=== PATIENT | female | born 1985 | race African-American/Black ===

== ENCOUNTER 2017-06-01 23:42 | Emergency (ER) | payer OTHER ==
[~2017-06-01] VITALS: Ht 160 cm; Wt 70.8 kg
[2017-06-01] MEDS ORDERED: PREDNISONE20 MG ORAL (23:58)
[2017-06-01] MEDS ORDERED: BENADRYL25 MG ORAL (23:58)
--- NOTE | 2017-06-01 23:58 | Emergency Room Report ---
History of Present Illness General Chief Complaint: Chest Pain Source: Patient Present Illness HPI Is a 32-year-old female with no cinnamon past medical history. She presents with allergic reaction. Unknown etiology. She woke up with hives on her body. Also with chest tightness. No fever chills but no nausea no vomiting. Itching. Has not anything for this. Denies any other complaint. Allergies: Coded Allergies: No Known Allergies (Unverified , 06/01/17) Patient History Past Medical History: none, see triage record, old chart reviewed Past Surgical History: none Pertinent Family History: none Social History: Denies: drug use Last Menstrual Period: NOW Now: No Immunizations: other Reviewed Nursing Documentation: PMH: Agreed, PSxH: Agreed Nursing Documentation-PMH Past Medical History: No Stated History Review of Systems Eye: Denies: blurred vision, eye pain ENT: Denies: ear pain, nose congestion, throat swelling Respiratory: Denies: cough, shortness of breath Cardiovascular: Reports: chest pain, Denies: palpitations Gastrointestinal: Denies: abdominal pain, diarrhea, nausea, vomiting Musculoskeletal: Denies: back pain, joint pain Skin: Reports: rash Neurological: Denies: headache, numbness Endocrine: Denies: increased thirst, increased urine Hematologic/Lymphatic: Denies: easy bruising All Other Systems: negative except mentioned in HPI Physical Exam Vital Signs Date Time Temp Pulse Resp B/P Pulse Ox O2 Delivery O2 Flow Rate FiO2 06/01/17 23:44 97.9 93 18 127/91 98 Room Air vitals normal Sp02 EP Interpretation: reviewed, normal General Appearance: well appearing, no apparent distress, alert Head: normocephalic, atraumatic Eyes: bilateral eye EOMI, bilateral eye PERRL ENT: hearing grossly normal, normal pharynx Neck: full range of motion, supple, no meningismus Respiratory: chest non-tender, lungs clear, normal breath sounds Cardiovascular #1: regular rate, rhythm, no murmur Gastrointestinal: normal bowel sounds, non tender, no mass, no organomegaly, no bruit, non-distended Musculoskeletal: back normal, gait/station normal, normal range of motion Neurologic: alert, oriented x3 Psychiatric: mood/affect normal Skin: warm/dry, other - Scattered diffuse urticaria Medical Decision Making Diagnostic Impression: Primary Impression: Allergic reaction Qualified Codes: T78.40XA - Allergy, unspecified, initial encounter ER Course Patient with urticaria/allergic reaction. Unknown etiology. Her chest pain is noncardiac and most likely secondary to histamine release. No evidence of ACS, PE, dissection to name a few. No evidence of anaphylaxis. Last Vital Signs Date Time Temp Pulse Resp B/P Pulse Ox O2 Delivery O2 Flow Rate FiO2 06/01/17 23:44 97.9 93 18 127/91 98 Room Air Status: improved Disposition: HOME, SELF-CARE Condition: Stable Scripts Prednisone* (PREDNISONE*) 20 Mg Tablet 40 MG ORAL DAILY, #10 TAB Prov: KWASI RAMIREZ M.D. 06/01/17 Diphenhydramine Hcl* (BENADRYL*) 25 Mg Capsule 50 MG ORAL Q6H Y for Itching, #30 CAP Prov: KWASI RAMIREZ M.D. 06/01/17 Additional Instructions: Followup with your Dr. in 7 days. Return if symptom worsen. Return for respiratory complaint. KWASI RAMIREZ M.D. Jun 01, 2017 23:58
[2017-06-02] MEDS ORDERED: Solu-MEDROL 125mg Inj IVP ONE
[2017-06-02] MEDS ORDERED: DiphenhydrAMINE 50mg/ml Inj IVP ONE
[2017-06-02 00:43] VITALS: BP 122/78
[2017-06-02 00:44] VITALS: BP 122/78
== END 2017-06-02 00:45 | disposition home or self-care (01) ==
LOC: EMR 23:55
DX: T78.40XA Allergy, unspecified, initial encounter (principal); X58.XXXA Exposure to other specified factors, initial encounter; L50.9 Urticaria, unspecified; R07.9 Chest pain, unspecified
CPT/HCPCS: 96374; 96375; 99284; J1200; J2930

== ENCOUNTER 2018-10-01 08:18 | Emergency (ER) | payer OTHER ==
[~2018-10-01] VITALS: Ht 160 cm; Wt 78.0 kg
[~2018-10-01 08:18] MED LIST: BENADRYL25 MG ORAL; PREDNISONE20 MG ORAL
[2018-10-01] MEDS ORDERED: NKM (08:26)
--- NOTE | 2018-10-01 08:39 | Emergency Room Report ---
History of Present Illness General Chief Complaint: Complications Source: Patient Present Illness HPI Patient reports that she is approximately 5 weeks presents with vaginal spotting since yesterday Reports that she saw her OB physician And was told that bleeding can be normal in the first trimester Patient also has an appointment in the next 3 days for repeat evaluation Denies any abdominal pain patient is denies any vomiting or diarrhea denies any fevers or chills at the spotting had persisted she was concerning came to the ER Reports that she did not have an ultrasound yesterday Allergies: Coded Allergies: No Known Allergies (Unverified , 06/01/17) Patient History Past Medical History: see triage record Pertinent Family History: none Now: Yes : 3 Para: 1 Reviewed Nursing Documentation: PMH: Agreed; PSxH: Agreed Nursing Documentation-PMH Past Medical History: No Stated History Review of Systems All Other Systems: negative except mentioned in HPI Physical Exam Vital Signs Date Time Temp Pulse Resp B/P (MAP) Pulse Ox O2 Delivery O2 Flow Rate FiO2 10/01/18 08:22 97.9 74 18 116/79 99 Room Air Sp02 EP Interpretation: reviewed, normal General Appearance: well appearing, no apparent distress Head: normocephalic, atraumatic Eyes: bilateral eye PERRL, bilateral eye EOMI ENT: hearing grossly normal, normal pharynx, TMs + canals normal, uvula midline Neck: full range of motion, supple, no meningismus, no bony tend Respiratory: lungs clear, normal breath sounds, no rhonchi, no respiratory distress, no retraction, no accessory muscle use Cardiovascular #1: normal peripheral pulses, regular rate, rhythm, no edema, no gallop, no JVD, no murmur Gastrointestinal: normal bowel sounds, non tender, soft, no mass, no organomegaly, non-distended, no guarding, no hernia, no pulsatile mass, no rebound Musculoskeletal: normal inspection Neurologic: oriented x3, responsive, lead person III-XII nml as tested, motor strength/ tone normal, sensory intact Psychiatric: mood/affect normal Skin: normal color, no rash, warm/dry, palpation normal Lymphatic: normal inspection, no adenopathy Medical Decision Making Diagnostic Impression: Primary Impression: Threatened ER Course With the patient's history and examination, multiple differentials considered, including but not limited to , ectopic , ovarian torsion, gastritis, cholecystitis, pancreatitis, appendicitis Patient's ultrasound reveals questionable early intrauterine Beta count is over 2700 Patient's blood type is O+ At this time the case was discussed with the patient with the diagnosis of possible threatened miscarriage and the need for close outpatient follow-up After disposition I was notified by nursing that the patient wanted to talk to me again Presenting back to the room patient is tearful and appears to have changed with her demeanor Asking further she reports that she was not told by her die inspector about the possible miscarriage He was again discussed with her that bleeding and early this has to be considered Patient again verbalizes understanding and will continue with outpatient follow- up Labs Test 10/01/18 08:40 Urine Color Yellow Urine Appearance Clear Urine pH 6 (4.5-8.0) Urine Specific [place] 1.015 (1.005-1.035) Urine Protein 2+ (NEGATIVE) Urine Glucose (UA) Negative (NEGATIVE) Urine Ketones Negative (NEGATIVE) Urine Blood 5+ (NEGATIVE) Urine Nitrite Negative (NEGATIVE) Urine Bilirubin Negative (NEGATIVE) Urine Urobilinogen Normal MG/DL (0.0-1.0) Urine Leukocyte Esterase 1+ (NEGATIVE) Urine RBC 60-80 /HPF (0 - 2) Urine WBC 0-2 /HPF (0 - 2) Urine Squamous Epithelial Cells Occasional /LPF Urine Bacteria Few /HPF (NONE) Human Chorionic Gonadotropin, Quant 2720 mIU/mL (1-6) CT/MRI/US Diagnostic Results CT/MRI/US Diagnostic Results : Impression pelvic ultrasoundIMPRESSION: 1. Possible 4.5 mm intrauterine gestational sac identified only on the transvaginal scan. No pole or yolk sac identified, likely related to early status. Recommend follow-up sonography. 2. 9 x 9 mm structure in the anterior wall of the lower uterine segment, likely small fibroid. 3. Multiple cystic lesions in the cervix, likely nabothian cysts, largest measuring 14 x 9 mm. Last Vital Signs Date Time Temp Pulse Resp B/P (MAP) Pulse Ox O2 Delivery O2 Flow Rate FiO2 10/01/18 08:22 97.9 74 18 116/79 99 Room Air Status: improved Disposition: HOME, SELF-CARE Condition: Improved Additional Instructions: Patient is provided with the discharge instructions notified to follow up with primary doctor in the next 2-3 days otherwise return to the er with any worsening symptoms. Please note that this report is being documented using [employer] technology. This can lead to erroneous entry secondary to incorrect interpretation by the dictating instrument. Isamar Horne DO Oct 01, 2018 08:39
[2018-10-01 08:49] LABS: APPEARANCE,URINE CLEAR; BILIRUBIN, URINE NEGATIVE (NEGATIVE); COLOR,URINE YELLOW; GLUCOSE, URINE (UA) NEGATIVE (NEGATIVE); KETONES,URINE NEGATIVE (NEGATIVE); LEUKOCYTE ESTERASE ,URINE 1+ (NEGATIVE); NITRITE,URINE NEGATIVE (NEGATIVE); PH,URINE 6 (4.5-8.0); PROTEIN,URINE 2+ (NEGATIVE); UROBILINOGEN,URINE NORMAL MG/DL (0.0-1.0)
--- NOTE | 2018-10-01 10:24 | Diagnostic Imaging Report ---
EXAM: US Pelvis Complete, Transabdominal CLINICAL HISTORY: BLD TECHNIQUE: Real-time transabdominal pelvic ultrasound (complete) with image documentation. COMPARISON: No relevant prior studies available. FINDINGS: Uterus/cervix: 9 x 9 mm structure in the anterior wall of the lower uterine segment, likely small fibroid. Multiple cystic lesions in the cervix, likely nabothian cysts, largest measuring 14 x 9 mm. Uterus measures 8.1 x 6.6 x 4.6 cm by transabdominal measurement and 9.3 x 6.6 x 5.1 cm by transvaginal measurement. Endometrial stripe thickness of 18 mm by transabdominal measurement and 13 mm by transvaginal measurement. Right ovary: Right ovary measures 4.1 x 4.0 x 2.0 cm by transabdominal measurement and 4.0 x 1.2 x 0.9 cm by transvaginal measurement. Normal Doppler flow. Left ovary: Left ovary measures 3.9 x 3.1 x 1.6 cm by transabdominal measurement and 4.4 x 3.7 x 1.5 cm by transvaginal measurement. Normal Doppler flow. Free fluid: No free fluid. Bladder: Unremarkable as visualized. Wall is normal thickness for degree of distention. Other findings: Possible 4.5 mm intrauterine gestational sac identified only on the transvaginal scan. IMPRESSION: 1. Possible 4.5 mm intrauterine gestational sac identified only on the transvaginal scan. No pole or yolk sac identified, likely related to early status. Recommend follow-up sonography. 2. 9 x 9 mm structure in the anterior wall of the lower uterine segment, likely small fibroid. 3. Multiple cystic lesions in the cervix, likely nabothian cysts, largest measuring 14 x 9 mm.
[2018-10-01 10:43] VITALS: BP 114/85
== END 2018-10-01 10:43 | disposition home or self-care (01) ==
LOC: EMR 09:05
DX: O20.0 Threatened abortion (principal); O26.851 Spotting complicating pregnancy, first trimester; Z3A.01 Less than 8 weeks gestation of pregnancy
CPT/HCPCS: 36415; 76801; 76830; 81003; 84702; 86900; 86901; 99284

== ENCOUNTER 2019-07-02 12:25 | Emergency (ER) | payer OTHER ==
[~2019-07-02] VITALS: Ht 160 cm; Wt 76.7 kg
[~2019-07-02 12:25] MED LIST changes: +NKM
[2019-07-02] MEDS ORDERED: PRENATAL 19 TA1 EAC1 PO (12:41)
--- NOTE | 2019-07-02 12:52 | Emergency Room Report ---
History of Present Illness General Chief Complaint: Vomiting Source: Patient Present Illness HPI 34-year-old female presents to the emergency department complaining of 6 out of 10 severity intermittent abdominal pain associated with nausea, vomiting, diarrhea since yesterday. She reports that she is 2 months and states that this does not feel like her normal morning sickness. Patient denies fevers or chills she denies recent travel she reports acute onset after eating a chicken sandwich and she also reports that her son whom ate a chicken sandwich also has similar symptoms presenting at approximately the same time. Denies blood in the vomit or stool denies black tarry stool denies profuse watery diarrhea and denies recent antibiotic use. Denies vaginal d/c, bleeding or pelvic pain. Pt. reports generalized intermittent cramping. Allergies: Coded Allergies: No Known Allergies (Unverified , 06/01/17) Patient History Past Medical History: see triage record Pertinent Family History: none Last Menstrual Period: 04/23/2019 Now: Yes : 4 Para: 1 Reviewed Nursing Documentation: PMH: Agreed; PSxH: Agreed Nursing Documentation-PMH Past Medical History: No Stated History Review of Systems All Other Systems: negative except mentioned in HPI Physical Exam Vital Signs Date Time Temp Pulse Resp B/P (MAP) Pulse Ox O2 Delivery O2 Flow Rate FiO2 07/02/19 12:38 98.8 96 18 111/74 (86) 95 Room Air Sp02 EP Interpretation: reviewed, normal General Appearance: alert, GCS 15, non-toxic, mild distress Head: normocephalic, atraumatic Eyes: bilateral eye normal inspection, bilateral eye PERRL ENT: hearing grossly normal, normal voice Neck: full range of motion Respiratory: chest non-tender, lungs clear, normal breath sounds, speaking full sentences Cardiovascular #1: regular rate, rhythm Gastrointestinal: normal bowel sounds - hyperactive in all 4 quadrants, soft, no guarding, tenderness - generalized TTP- mild, no localized RLQ TTP, no rebound, No murphys. Rectal: deferred Genitourinary: normal inspection, no CVA tenderness Musculoskeletal: gait/station normal, normal range of motion, non-tender Neurologic: alert, oriented x3, responsive, motor strength/tone normal, sensory intact, normal gait, speech normal, grossly normal Psychiatric: judgement/insight normal Skin: no rash Medical Decision Making PA Attestation Dr. Hendrix is my supervising Physician whom patient management has been discussed with. Diagnostic Impression: Primary Impression: Combined abdominal pain, vomiting, and diarrhea Additional Impressions: Diarrhea during Vomiting during ER Course 34-year-old female presents to the emergency department complaining of 6 out of 10 severity intermittent abdominal pain associated with nausea, vomiting, diarrhea since yesterday. She reports that she is 2 months and states that this does not feel like her normal morning sickness. Patient denies fevers or chills she denies recent travel she reports acute onset after eating a chicken sandwich and she also reports that her son whom ate a chicken sandwich also has similar symptoms presenting at approximately the same time. Denies blood in the vomit or stool denies black tarry stool denies profuse watery diarrhea and denies recent antibiotic use. Denies vaginal d/c, bleeding or pelvic pain. Pt. reports generalized intermittent cramping. Ddx considered but are not limited to GE, colitis, acute appy, SBO, Cyclical Vomiting secondary to THC, just to name a few. Vital signs: pt. is afebrile, H&PE are most consistent with GE , no evidence to suggest acute abdomen on physical exam. No evidence of severe Dehydration. ORDERS: -CBC: WNL -CMP: WNL - Hcg Quant: 12113 - Abdominal OB US: ED INTERVENTIONS: -1000 NS iv hydration, -Reglan 5mg IV - Benadryl 25mg IV -Bentyl PO After above interventions this patient successfully completed oral fluid challenge without nausea or vomiting. DISCHARGE: At this time pt. is stable for d/c to home. Will provide printed patient care instructions, and any necessary prescriptions. Care plan and follow up instructions have been discussed with the patient prior to discharge. Labs Test 07/02/19 13:10 White Blood Count 6.7 K/UL (4.8-10.8) Red Blood Count 4.14 M/UL (4.20-5.40) Hemoglobin 12.4 G/DL (12.0-16.0) Hematocrit 37.0 % (37.0-47.0) Mean Corpuscular Volume 89 FL (80-99) Mean Corpuscular Hemoglobin 30.0 PG (27.0-31.0) Mean Corpuscular Hemoglobin Concent 33.5 G/DL (32.0-36.0) Red Cell Distribution Width 10.3 % (11.6-14.8) Platelet Count 291 K/UL (150-450) Mean Platelet Volume 6.4 FL (6.5-10.1) Neutrophils (%) (Auto) 58.2 % (45.0-75.0) Lymphocytes (%) (Auto) 34.5 % (20.0-45.0) Monocytes (%) (Auto) 4.8 % (1.0-10.0) Eosinophils (%) (Auto) 1.1 % (0.0-3.0) Basophils (%) (Auto) 1.5 % (0.0-2.0) Sodium Level 138 MMOL/L (136-145) Potassium Level 3.8 MMOL/L (3.5-5.1) Chloride Level 104 MMOL/L (98-107) Carbon Dioxide Level 24 MMOL/L (21-32) Anion Gap 10 mmol/L (5-15) Blood Urea Nitrogen 7 mg/dL (7-18) Creatinine 0.7 MG/DL (0.55-1.30) Estimat Glomerular Filtration Rate > 60 mL/min (>60) Glucose Level 135 MG/DL (74-106) Calcium Level 9.9 MG/DL (8.5-10.1) Total Bilirubin 0.3 MG/DL (0.2-1.0) Aspartate Amino Transf (AST/SGOT) 12 U/L (15-37) Alanine Aminotransferase (ALT/SGPT) 15 U/L (12-78) Alkaline Phosphatase 48 U/L (46-116) Total Protein 7.4 G/DL (6.4-8.2) Albumin 3.7 G/DL (3.4-5.0) Globulin 3.7 g/dL Albumin/Globulin Ratio 1.0 (1.0-2.7) Human Chorionic Gonadotropin, Quant 75805 mIU/mL (1-6) CT/MRI/US Diagnostic Results CT/MRI/US Diagnostic Results : Imaging Test Ordered: Vaginal OB US Impression " IUP measuring 9 weeks 3 days with heart rate 170 beats/minute." Per official radiology report- Please see report for specific details. Last Vital Signs Date Time Temp Pulse Resp B/P (MAP) Pulse Ox O2 Delivery O2 Flow Rate FiO2 07/02/19 12:38 98.8 96 18 111/74 (86) 95 Room Air Status: improved Disposition: HOME, SELF-CARE Condition: Stable Scripts Diphenhydramine Hcl (BENADRYL ALLERGY) 25 Mg Tablet 25 MG PO Q6HR for anxiousness from medications, #4 TAB Prov: Shilpa Simons 07/02/19 Dicyclomine Hcl* (DICYCLOMINE HCL*) 10 Mg Capsule 10 MG ORAL TID for Diarrhea, #9 CAP Prov: Shilpa Simons 07/02/19 Metoclopramide Hcl* (REGLAN*) 5 Mg Tablet 5 MG ORAL EVERY 6 HOURS for Nausea/Vomiting, #12 TAB Prov: Shilpa Simons 07/02/19 Patient Instructions: Food Poisoning Additional Instructions: Take medications as directed. Follow up with a OBGYN within 3 days, even if your symptoms have resolved. Return sooner to ED if new symptoms occur, or current symptoms become worse. - Please note that this Emergency Department Report was dictated using [employer] public [employer] technology software, occasionally this can lead to erroneous entry secondary to interpretation by the dictation equipment. Shilpa Simons Jul 02, 2019 12:52
[2019-07-02 12:53] VITALS: BP 111/74
--- NOTE | 2019-07-02 12:53 | NUR ---
ED Nurse Note: Patient walked in to ER from home due to abdominal pain 01/18, N/V since yesterday. pt aao x4 and ambulatory. skin clean and intact. calm and cooperative. per pt, she had a chicken burger yesterday and symptoms started. vss as documented. no vomiting at this moment.
[2019-07-02] MEDS ORDERED: Metoclopramide 10mg/2ml Inj IVP ONE (13:15)
[2019-07-02] MEDS ORDERED: DiphenhydrAMINE 50mg/ml Inj IVP ONE (13:15)
[2019-07-02 13:30] LABS: BASOPHILS % (AUTO) 1.5 % (0.0-2.0); EOSINOPHILS % (AUTO) 1.1 % (0.0-3.0); HEMOGLOBIN 12.4 G/DL (12.0-16.0); LYMPHOCYTES % (AUTO) 34.5 % (20.0-45.0); MEAN CORPUSCULAR VOLUME 89 FL (80-99); MONOCYTES % (AUTO) 4.8 % (1.0-10.0); NEUTROPHILS % (AUTO) 58.2 % (45.0-75.0); PLATELET COUNT 291 K/UL (150-450); RED BLOOD COUNT 4.14 M/UL (4.20-5.40); RED CELL DISTRIBUTION WIDTH 10.3 % (11.6-14.8); WHITE BLOOD COUNT 6.7 K/UL (4.8-10.8)
[2019-07-02 13:36] LABS: ANION GAP 10 mmol/L (5-15); BLOOD UREA NITROGEN 7 mg/dL (7-18); CALCIUM 9.9 MG/DL (8.5-10.1); CARBON DIOXIDE 24 MMOL/L (21-32); CHLORIDE 104 MMOL/L (98-107); CREATININE 0.7 MG/DL (0.55-1.30); POTASSIUM 3.8 MMOL/L (3.5-5.1); SODIUM 138 MMOL/L (136-145)
[2019-07-02 13:42] LABS: ALANINE AMINOTRANSFERASE 15 U/L (12-78); ALBUMIN 3.7 G/DL (3.4-5.0); ALKALINE PHOSPHATASE 48 U/L (46-116); ASPARTATE AMINO TRANSFERASE 12 U/L (15-37); BILIRUBIN,TOTAL 0.3 MG/DL (0.2-1.0)
[2019-07-02] MEDS ORDERED: Dicyclomine HCl 10mg/5ml oral soln ORAL ONE (14:00)
--- NOTE | 2019-07-02 14:30 | NUR ---
ED Nurse Note: Patient sleeping in room c/o no distress at this time. Informed patient that ceramics technician will be coming at around 330.
[2019-07-02 15:12] VITALS: BP 115/80
--- NOTE | 2019-07-02 15:12 | NUR ---
ED Nurse Note: Patient going down for ultrasound accompanied by ultrasound technologist sonographer
--- NOTE | 2019-07-02 16:00 | NUR ---
ED Nurse Note: Patient back from ultrasound, patient was given a sandwich, complains of no distress at this time
[2019-07-02] MEDS ORDERED: REGLAN5 MG ORAL (16:16)
[2019-07-02] MEDS ORDERED: DICYCLOMINE HCL10 MG ORAL (16:16)
--- NOTE | 2019-07-02 16:19 | Diagnostic Imaging Report ---
Indication: Pelvic pain. Technique: Grayscale and duplex Doppler imaging of the pelvis performed utilizing a transabdominal scan and endovaginal scan. Comparison: None Findings: Emergency ultrasound demonstrating single living IUP 9 weeks 2 days gestational age demonstrated based on average crown-rump length measurement of 2.5 cm. heart tones demonstrated indicating viability. Yolk sac noted. Both ovaries are demonstrated and show dopplerable blood flow. The cervix is closed and the measures 3.5 cm in length best demonstrated on endovaginal examination. Cervical nabothian cysts noted. The right ovary is 3.5 x 1.5 cm. Left ovary 2.7 x 1.3 x 2.5 cm. IMPRESSION: Single living IUP 9 weeks 2 days gestational age.
[2019-07-02] MEDS ORDERED: BENADRYL ALLERG25 M1 PO (16:26)
[2019-07-02 16:29] VITALS: BP 122/76
--- NOTE | 2019-07-02 16:29 | NUR ---
ER DISCHARGE NOTE: Patient is cleared to be discharged per ERMD, pt is aox4, on room air, with stable vital signs. pt was given dc and prescription instructions, pt was able to verbalize understanding, pt id band and iv site removed without complications. pt is able to ambulate with steady gait. pt took all belongings.
== END 2019-07-02 16:30 | disposition home or self-care (01) ==
LOC: EMR 13:00
DX: O21.9 Vomiting of pregnancy, unspecified (principal); Z3A.09 9 weeks gestation of pregnancy
CPT/HCPCS: 36415; 76801; 80053; 84702; 85025; 96361; 96374; 96375; J1200; J2765; Z7502; 99284

== ENCOUNTER 2019-07-22 11:22 | Emergency (ER) | payer OTHER ==
[~2019-07-22] VITALS: Ht 160 cm; Wt 71.7 kg
[~2019-07-22 11:22] MED LIST changes: +BENADRYL ALLERG25 M1 PO; +DICYCLOMINE HCL10 MG ORAL; +PRENATAL 19 TA1 EAC1 PO; +REGLAN5 MG ORAL
[2019-07-22] MEDS ORDERED: METOCLOPRA10 MG/10 M ORAL (11:37)
--- NOTE | 2019-07-22 11:40 | NUR ---
ED Nurse Note: Patient walked into ED from home c/o right lower quadrant pain, sharp. and nausea and vomiting for weeks. patient reports she is 3 months , following up with her OBGYN, but nausea medications prescribed are not really working for her.
[2019-07-22] MEDS ORDERED: DiphenhydrAMINE 50mg/ml Inj IVP ONE ×2 (12:00→17:30)
[2019-07-22] MEDS ORDERED: Dextrose 5%/Lactated Ringer's 1,000 ML IV SCH (12:00)
[2019-07-22 12:19] LABS: EOSINOPHILS % (AUTO) 1.1 % (0.0-3.0); HEMATOCRIT 36.4 % (37.0-47.0); HEMOGLOBIN 12.4 G/DL (12.0-16.0); LYMPHOCYTES % (AUTO) 39.4 % (20.0-45.0); MEAN CORPUSCULAR VOLUME 87 FL (80-99); MONOCYTES % (AUTO) 5.7 % (1.0-10.0); NEUTROPHILS % (AUTO) 52.8 % (45.0-75.0); PLATELET COUNT 327 K/UL (150-450); RED BLOOD COUNT 4.16 M/UL (4.20-5.40); RED CELL DISTRIBUTION WIDTH 10.5 % (11.6-14.8); WHITE BLOOD COUNT 6.8 K/UL (4.8-10.8)
[2019-07-22 12:26] LABS: APPEARANCE,URINE CLEAR; BILIRUBIN, URINE NEGATIVE (NEGATIVE); COLOR,URINE BROWN; GLUCOSE, URINE (UA) NEGATIVE (NEGATIVE); KETONES,URINE 2+ (NEGATIVE); LEUKOCYTE ESTERASE ,URINE 1+ (NEGATIVE); NITRITE,URINE NEGATIVE (NEGATIVE); PH,URINE 5 (4.5-8.0); PROTEIN,URINE 2+ (NEGATIVE); UROBILINOGEN,URINE 1 MG/DL (0.0-1.0)
[2019-07-22 12:35] LABS: ANION GAP 8 mmol/L (5-15); BLOOD UREA NITROGEN 6 mg/dL (7-18); CALCIUM 9.4 MG/DL (8.5-10.1); CARBON DIOXIDE 24 MMOL/L (21-32); CHLORIDE 102 MMOL/L (98-107); CREATININE 0.6 MG/DL (0.55-1.30); POTASSIUM 3.6 MMOL/L (3.5-5.1); SODIUM 134 MMOL/L (136-145)
[2019-07-22 12:39] LABS: ALANINE AMINOTRANSFERASE 17 U/L (12-78); ALBUMIN 3.5 G/DL (3.4-5.0); ALBUMIN/GLOBULIN RATIO 0.9 (1.0-2.7); ALKALINE PHOSPHATASE 45 U/L (46-116); ASPARTATE AMINO TRANSFERASE 11 U/L (15-37); BILIRUBIN,TOTAL 0.3 MG/DL (0.2-1.0)
--- NOTE | 2019-07-22 14:02 | Emergency Room Report ---
History of Present Illness General Chief Complaint: Complications Source: Patient (Gera Almeida MD) Present Illness HPI Patient is a 34-year-old female presented after increased nausea and vomiting. She reports having some increased right-sided abdominal discomfort. She was noted to be . Patient denies any fever. She reports having multiple episodes of nonbilious emesis. She had previous been prescribed Reglan. Brief episode of right sided pain, no pain currently. Denies pain with movement or ambulation. Denies vertigo. (Gera Almeida MD) Allergies: Coded Allergies: No Known Allergies (Unverified , 06/01/17) Patient History Past Medical History: see triage record Now: Yes - 3 months Reviewed Nursing Documentation: PMH: Agreed; PSxH: Agreed (Gera Almeida MD) Nursing Documentation-PMH Past Medical History: No Stated History (Gera Almeida MD) Review of Systems All Other Systems: negative except mentioned in HPI (Gera Almeida MD) Physical Exam Vital Signs Date Time Temp Pulse Resp B/P (MAP) Pulse Ox O2 Delivery O2 Flow Rate FiO2 07/22/19 11:32 98.2 87 19 117/81 (93) 99 Room Air General Appearance: well appearing, no apparent distress, alert, GCS 15 Eyes: bilateral eye PERRL ENT: hearing grossly normal Neck: full range of motion Respiratory: lungs clear Cardiovascular #1: normal inspection Gastrointestinal: normal inspection, normal bowel sounds, non tender, other - gravid uterus Musculoskeletal: normal inspection Neurologic: normal inspection, alert, oriented x3, responsive, ore miner blasting III-XII nml as tested Psychiatric: normal inspection, judgement/insight normal Skin: no rash (Gera Almeida MD) Vital Signs Date Time Temp Pulse Resp B/P (MAP) Pulse Ox O2 Delivery O2 Flow Rate FiO2 07/22/19 11:32 98.2 87 19 117/81 (93) 99 Room Air Sp02 EP Interpretation: reviewed, normal General Appearance: well appearing, no apparent distress, alert Head: normocephalic, atraumatic Eyes: bilateral eye PERRL, bilateral eye EOMI ENT: uvula midline, moist mucus membranes Neck: supple, thyroid normal, supple/symm/no masses Respiratory: lungs clear, no respiratory distress, no retraction, no accessory muscle use Cardiovascular #1: normal peripheral pulses, regular rate, rhythm, no edema, no gallop, no murmur Gastrointestinal: non tender, soft, no guarding, no rebound Musculoskeletal: normal inspection Neurologic: alert, oriented x3 Psychiatric: mood/affect normal Skin: no rash, warm/dry (Matt Arciniega MD) Medical Decision Making Diagnostic Impression: Primary Impression: Hyperemesis arising during ER Course Patient presented for increased abdominal discomfort as well as vomiting. Differential diagnosis include was not limited to ovarian cyst, torsion, round ligament pain among others. Because of complexity of patient's case laboratory tests and imaging studies were ordered. Laborartory testing was unremarkable. Patient had been given IV hydration. Improved ability to tolerated po fluids. Patient pending ultrasound endorsed to Dr. Arciniega likely will be discharge if normal. Labs Test 07/22/19 11:49 White Blood Count 6.8 K/UL (4.8-10.8) Red Blood Count 4.16 M/UL (4.20-5.40) Hemoglobin 12.4 G/DL (12.0-16.0) Hematocrit 36.4 % (37.0-47.0) Mean Corpuscular Volume 87 FL (80-99) Mean Corpuscular Hemoglobin 29.8 PG (27.0-31.0) Mean Corpuscular Hemoglobin Concent 34.1 G/DL (32.0-36.0) Red Cell Distribution Width 10.5 % (11.6-14.8) Platelet Count 327 K/UL (150-450) Mean Platelet Volume 6.0 FL (6.5-10.1) Neutrophils (%) (Auto) 52.8 % (45.0-75.0) Lymphocytes (%) (Auto) 39.4 % (20.0-45.0) Monocytes (%) (Auto) 5.7 % (1.0-10.0) Eosinophils (%) (Auto) 1.1 % (0.0-3.0) Basophils (%) (Auto) 1.0 % (0.0-2.0) Prothrombin Time 10.5 SEC (9.30-11.50) Prothromb Time International Ratio 1.0 (0.9-1.1) Activated Partial Thromboplast Time 25 SEC (23-33) Urine Color Brown Urine Appearance Clear Urine pH 5 (4.5-8.0) Urine Specific [place] 1.025 (1.005-1.035) Urine Protein 2+ (NEGATIVE) Urine Glucose (UA) Negative (NEGATIVE) Urine Ketones 2+ (NEGATIVE) Urine Blood Negative (NEGATIVE) Urine Nitrite Negative (NEGATIVE) Urine Bilirubin Negative (NEGATIVE) Urine Urobilinogen 1 MG/DL (0.0-1.0) Urine Leukocyte Esterase 1+ (NEGATIVE) Urine RBC 0 /HPF (0 - 2) Urine WBC 0-2 /HPF (0 - 2) Urine Squamous Epithelial Cells Occasional /LPF Urine Bacteria Occasional /HPF (NONE) Urine Mucus Moderate /LPF (NONE/OCC) Sodium Level 134 MMOL/L (136-145) Potassium Level 3.6 MMOL/L (3.5-5.1) Chloride Level 102 MMOL/L (98-107) Carbon Dioxide Level 24 MMOL/L (21-32) Anion Gap 8 mmol/L (5-15) Blood Urea Nitrogen 6 mg/dL (7-18) Creatinine 0.6 MG/DL (0.55-1.30) Estimat Glomerular Filtration Rate > 60 mL/min (>60) Glucose Level 82 MG/DL (74-106) Calcium Level 9.4 MG/DL (8.5-10.1) Total Bilirubin 0.3 MG/DL (0.2-1.0) Aspartate Amino Transf (AST/SGOT) 11 U/L (15-37) Alanine Aminotransferase (ALT/SGPT) 17 U/L (12-78) Alkaline Phosphatase 45 U/L (46-116) Troponin I 0.000 ng/mL (0.000-0.056) Total Protein 7.4 G/DL (6.4-8.2) Albumin 3.5 G/DL (3.4-5.0) Globulin 3.9 g/dL Albumin/Globulin Ratio 0.9 (1.0-2.7) Lipase 159 U/L (73-393) (Gera Almeida MD) ER Course Signout received from Dr. Almeida, reevaluation at 5:11 PM, patient is tolerating p.o. Patient's abdomen remains soft nontender, ultrasound is negative for any acute pathology disposition home with return precautions Laboratory Tests Test 07/22/19 11:49 White Blood Count 6.8 K/UL (4.8-10.8) Red Blood Count 4.16 M/UL (4.20-5.40) L Hemoglobin 12.4 G/DL (12.0-16.0) Hematocrit 36.4 % (37.0-47.0) L Mean Corpuscular Volume 87 FL (80-99) Mean Corpuscular Hemoglobin 29.8 PG (27.0-31.0) Mean Corpuscular Hemoglobin Concent 34.1 G/DL (32.0-36.0) Red Cell Distribution Width 10.5 % (11.6-14.8) L Platelet Count 327 K/UL (150-450) Mean Platelet Volume 6.0 FL (6.5-10.1) L Neutrophils (%) (Auto) 52.8 % (45.0-75.0) Lymphocytes (%) (Auto) 39.4 % (20.0-45.0) Monocytes (%) (Auto) 5.7 % (1.0-10.0) Eosinophils (%) (Auto) 1.1 % (0.0-3.0) Basophils (%) (Auto) 1.0 % (0.0-2.0) Prothrombin Time 10.5 SEC (9.30-11.50) Prothrombin Time INR 1.0 (0.9-1.1) PTT 25 SEC (23-33) Urine Color Brown Urine Appearance Clear Urine pH 5 (4.5-8.0) Urine Specific [place] 1.025 (1.005-1.035) Urine Protein 2+ (NEGATIVE) H Urine Glucose (UA) Negative (NEGATIVE) Urine Ketones 2+ (NEGATIVE) H Urine Blood Negative (NEGATIVE) Urine Nitrite Negative (NEGATIVE) Urine Bilirubin Negative (NEGATIVE) Urine Urobilinogen 1 MG/DL (0.0-1.0) H Urine Leukocyte Esterase 1+ (NEGATIVE) H Urine RBC 0 /HPF (0 - 2) Urine WBC 0-2 /HPF (0 - 2) Urine Squamous Epithelial Cells Occasional /LPF Urine Bacteria Occasional /HPF (NONE) Urine Mucus Moderate /LPF (NONE/OCC) H Sodium Level 134 MMOL/L (136-145) L Potassium Level 3.6 MMOL/L (3.5-5.1) Chloride Level 102 MMOL/L (98-107) Carbon Dioxide Level 24 MMOL/L (21-32) Anion Gap 8 mmol/L (5-15) Blood Urea Nitrogen 6 mg/dL (7-18) L Creatinine 0.6 MG/DL (0.55-1.30) Estimate Glomerular Filtration Rate > 60 mL/min (>60) Glucose Level 82 MG/DL (74-106) Calcium Level 9.4 MG/DL (8.5-10.1) Total Bilirubin 0.3 MG/DL (0.2-1.0) Aspartate Amino Transferase (AST) 11 U/L (15-37) L Alanine Aminotransferase (ALT) 17 U/L (12-78) Alkaline Phosphatase 45 U/L (46-116) L Troponin I 0.000 ng/mL (0.000-0.056) Total Protein 7.4 G/DL (6.4-8.2) Albumin 3.5 G/DL (3.4-5.0) Globulin 3.9 g/dL Albumin/Globulin Ratio 0.9 (1.0-2.7) L Lipase 159 U/L (73-393) (Matt Arciniega MD) CT/MRI/US Diagnostic Results CT/MRI/US Diagnostic Results : Impression Final Report EXAM: US Pelvis Complete, Transabdominal CLINICAL HISTORY: ABD PAIN TECHNIQUE: Real-time transabdominal pelvic ultrasound (complete) with image documentation. COMPARISON: No relevant prior studies available. FINDINGS: Uterus/cervix: The cervix is closed and measures about 4.2 cm in length. Normal endometrial stripe thickness. No myometrial mass. There is a single live intrauterine with an estimated gestational age of 12 weeks 5 days per crown-rump length measurement of 6.31 cm. heart rate is 166. Right ovary: Right ovary measures about 3.2 and 1.7 x 3.4 cm. Normal blood flow. Left ovary: Left ovary measures about 3.2 x 1.1 x 2.9 cm. Normal blood flow. Free fluid: No free fluid. IMPRESSION: single live intrauterine with an estimated gestational age of 12 weeks 5 days per crown-rump length measurement of 6.31 cm. Estimated due date is 01/30/20 Radiologist: Gergory Minaya M.D. Electronically Signed: 07/22/19 18:35 Phone: Study ready at 18:05 and initial results transmitted at 18:35 (Matt Arciniega MD) Last Vital Signs Date Time Temp Pulse Resp B/P (MAP) Pulse Ox O2 Delivery O2 Flow Rate FiO2 07/22/19 11:32 98.2 87 19 117/81 (93) 99 Room Air Status: improved (Gera Almeida MD) Disposition: HOME, SELF-CARE Condition: Stable Scripts Doxylamine/Pyridoxine Hcl (DICLECODIS DR 10-10 MG TABLET) 1 Each Tablet. 1 EACH PO BID, #30 TAB Prov: Matt Arciniega MD 07/22/19 Referrals: NON PHYSICIAN (PCP) [facility]. [facility] Patient Instructions: Eating Plan for Hyperemesis Gravidarum, Hyperemesis Gravidarum Additional Instructions: The patient was provided with discharge instructions, notified to follow-up with a primary care doctor and or specialist in the next 24-48 hours, and to return to the ED if they have worsening of their symptoms. Please note that this report is being documented using DRAGON technology. This can lead to erroneous entry secondary to incorrect interpretation by the dictating instrument. Gera Almeida MD Jul 22, 2019 14:02 Matt Arciniega MD Jul 22, 2019 17:12
--- NOTE | 2019-07-22 14:18 | NUR ---
ED Nurse Note: [facility] called, will be seeing patient soon
--- NOTE | 2019-07-22 14:40 | NUR ---
ED Nurse Note: patient taken to [facility] with her son
[2019-07-22] MEDS ORDERED: Metoclopramide 10mg/2ml Inj IVP ONE (17:00)
[2019-07-22] MEDS ORDERED: DICLEGIS DR 101 EACH PO (17:11)
[2019-07-22] MEDS ORDERED: DiphenhydrAMINE 50mg/ml Inj ONE (17:22)
[2019-07-22 17:28] VITALS: BP 121/82
[2019-07-22 17:29] VITALS: BP 121/82
--- NOTE | 2019-07-22 17:29 | NUR ---
ER DISCHARGE NOTE: Patient is cleared to be discharged per ERMD DR MARTIN, pt is aox4, on room air, with stable vital signs. pt was given dc and prescription instructions, pt was able to verbalize understanding, pt id band and iv site removed without complications. pt is able to ambulate with steady gait. pt took all belongings.
--- NOTE | 2019-07-22 18:17 | Diagnostic Imaging Report ---
EXAM: US Abdomen Complete CLINICAL HISTORY: ABD PAIN TECHNIQUE: Real-time ultrasound of the abdomen (complete) with image documentation. COMPARISON: No relevant prior studies available. FINDINGS: Liver: Liver measures about 15.1 cm longitudinally. No intrahepatic bile duct dilation. Gallbladder: Gallbladder measures about 1 mm in maximal thickness. No gallstones. Common bile duct: Common bile duct measures 3 mm in maximum diameter No stones. No dilation. Pancreas: Unremarkable as visualized. Kidneys: left kidney measures 11.5 cm longitudinally. Right kidney measures about 11.6 cm longitudinally. No stones. No hydronephrosis. Spleen: Spleen measures about 9 cm longitudinally. Aorta: Unremarkable. No aneurysm. Inferior vena cava: Unremarkable. IMPRESSION: No acute findings.
--- NOTE | 2019-07-22 18:36 | Diagnostic Imaging Report ---
EXAM: US Pelvis Complete, Transabdominal CLINICAL HISTORY: ABD PAIN TECHNIQUE: Real-time transabdominal pelvic ultrasound (complete) with image documentation. COMPARISON: No relevant prior studies available. FINDINGS: Uterus cervix: The cervix is closed and measures about 4.2 cm in length. Normal endometrial stripe thickness. No myometrial mass. There is a single live intrauterine with an estimated gestational age of 12 weeks 5 days per crown-rump length measurement of 6.31 cm. heart rate is 166. Right ovary: Right ovary measures about 3.2 and 1.7 x 3.4 cm. Normal blood flow. Left ovary: Left ovary measures about 3.2 x 1.1 x 2.9 cm. Normal blood flow. Free fluid: No free fluid. IMPRESSION: single live intrauterine with an estimated gestational age of 12 weeks 5 days per crown-rump length measurement of 6. 31 cm. Estimated due date is 01 30 20
== END 2019-07-22 17:29 | disposition home or self-care (01) ==
LOC: EMR 12:44
DX: O21.0 Mild hyperemesis gravidarum (principal); O26.891 Other specified pregnancy related conditions, first trimester; R10.9 Unspecified abdominal pain; Z3A.12 12 weeks gestation of pregnancy
CPT/HCPCS: 36415; 76700; 76856; 80053; 81003; 83690; 84484; 85025; 85610; 85730; 86850; 86900; 86901; 96361; 96365; 96375; 96376; J1200; J2765; Z7502; 99284; J7030

== ENCOUNTER 2020-08-24 05:01 | Emergency (ER) | payer OTHER ==
[~2020-08-24] VITALS: Ht 160 cm; Wt 77.1 kg
[~2020-08-24 05:01] MED LIST changes: +ACETAMINOPHEN325 M1 ORAL; +DICLEGIS DR 101 EACH PO; +IBU800 MG PO; +METOCLOPRA10 MG/10 M ORAL
[2020-08-24 05:15] VITALS: BP 150/96
--- NOTE | 2020-08-24 05:15 | NUR ---
ED Nurse Note: Patient walked into ED for c/o nausea/vomiting since last night. Patient states she was drinking tequila and had "too many shots of alcohol". N/V started shortly after drinking alcohol. Denies any abdominal pain. She is aaox4, breathing is normal and unlabored. Patient does report headache. IV line established, blood drawn and sent to lab.
[2020-08-24] MEDS ORDERED: Dicyclomine HCl 10mg/5ml oral soln ORAL ONE (05:30)
[2020-08-24] MEDS ORDERED: Lidocaine 2% Visc 15ml soln ORAL ONE (05:30)
[2020-08-24] MEDS ORDERED: Mylanta II UD 30ml ORAL ONE (05:30)
[2020-08-24 05:53] LABS: BASOPHILS % (AUTO) 1.2 % (0.0-2.0); HEMATOCRIT 41.1 % (37.0-47.0); HEMOGLOBIN 13.2 G/DL (12.0-16.0); LYMPHOCYTES % (AUTO) 42.9 % (20.0-45.0); MEAN CORPUSCULAR VOLUME 95 FL (80-99); MONOCYTES % (AUTO) 3.9 % (1.0-10.0); PLATELET COUNT 294 K/UL (150-450); RED BLOOD COUNT 4.34 M/UL (4.20-5.40); RED CELL DISTRIBUTION WIDTH 11.8 % (11.6-14.8); WHITE BLOOD COUNT 7.6 K/UL (4.8-10.8)
--- NOTE | 2020-08-24 05:54 | Diagnostic Imaging Report ---
EXAM: XR Chest, 1 View CLINICAL HISTORY: SOB TECHNIQUE: Frontal view of the chest. COMPARISON: No relevant prior studies available. FINDINGS/IMPRESSION: No focal consolidation, pleural effusion, or pneumothorax. The heart size is within normal limits.
--- NOTE | 2020-08-24 05:57 | Emergency Room Report ---
History of Present Illness General Chief Complaint: Vomiting Source: Patient Present Illness HPI 35-year-old female here with vomiting. The patient said that she had a heavy amount of alcohol to drink last night and then this morning she woke up and vomited multiple times. She then said that the vomit was then mixed with some blood. Experiencing epigastric abdominal pain. No headache, vision changes, chest pain, palpitation, shortness of breath, fevers, chills, back pain, diarrhea, dysuria. Allergies: Coded Allergies: No Known Allergies (Unverified , 06/01/17) COVID-19 Screening Contact w/high risk pt: No Experienced COVID-19 symptoms?: No COVID-19 Testing performed FREIGHT RECEIVER: No Patient History Last Menstrual Period: 08/19/2020 Now: No : 5 Para: 2 Nursing Documentation-[facility] Past Medical History: No History, Except For Review of Systems All Other Systems: negative except mentioned in HPI Physical Exam Vital Signs Date Time Temp Pulse Resp B/P (MAP) Pulse Ox O2 Delivery O2 Flow Rate FiO2 08/24/20 05:03 97.2 88 18 150/96 (114) 96 Room Air Sp02 EP Interpretation: reviewed, normal General Appearance: no apparent distress, alert, non-toxic Head: normocephalic, atraumatic Eyes: bilateral eye normal inspection, bilateral eye PERRL ENT: hearing grossly normal, normal pharynx, no angioedema, normal voice Neck: full range of motion, supple/symm/no masses Respiratory: chest non-tender, lungs clear, normal breath sounds, speaking full sentences Cardiovascular #1: regular rate, rhythm, no edema Cardiovascular #2: 2+ carotid (R), 2+ carotid (L), 2+ radial (R), 2+ radial (L), 2+ dorsalis pedis (R), 2+ dorsalis pedis (L) Gastrointestinal: normal bowel sounds, non tender, soft, non-distended, no guarding, no rebound Rectal: deferred Genitourinary: normal inspection, no CVA tenderness Musculoskeletal: back normal, normal range of motion, gait/station normal, non- tender Neurologic: alert, motor strength/tone normal, oriented x3, sensory intact, responsive, speech normal Psychiatric: judgement/insight normal, memory normal, mood/affect normal, no suicidal/homicidal ideation Lymphatic: no adenopathy Medical Decision Making Diagnostic Impression: Primary Impression: Vomiting ER Course 35-year-old female here with vomiting. The patient was hemodynamically stable and neurovascular intact in the emergency department. She had normal vital signs and her stay in the ER. She was given Zofran and IV fluids with good resolution of her symptoms. Patient claimed that she had vomited multiple times earlier in the day after drinking a heavy amount of alcohol. She said that some of the vomit "looked like it was mixed with some blood." Patient had normal hemoglobin here in the emergency department. She is completely awake and alert. Received a GI cocktail with Bentyl and Pepcid. Currently awaiting other labs. Signed out to oncoming physician Dr. Cohen. Last Vital Signs Date Time Temp Pulse Resp B/P (MAP) Pulse Ox O2 Delivery O2 Flow Rate FiO2 08/24/20 05:15 88 18 Room Air 08/24/20 05:15 97.2 150/96 96 Scripts Famotidine* (Pepcid 20mg tablet*) 20 Mg Tablet 20 MG ORAL DAILY for Gerd, #30 TAB 0 Refills Prov: Avni Galan M.D. 08/24/20 Ondansetron Odt* (ZOFRAN ODT*) 8 Mg Tab.rapdis 8 MG ORAL Q6H PRN for Nausea & Vomiting, #12 TAB Prov: Avni Galan M.D. 08/24/20 Referrals: [facility],REFERRING (PCP) Avni Galan M.D. Aug 24, 2020 05:57
[2020-08-24 06:12] LABS: ANION GAP 7 mmol/L (5-15); BLOOD UREA NITROGEN 10 mg/dL (7-18); CALCIUM 8.6 MG/DL (8.5-10.1); CARBON DIOXIDE 29 MMOL/L (21-32); CHLORIDE 105 MMOL/L (98-107); CREATININE 0.8 MG/DL (0.55-1.30); POTASSIUM 3.6 MMOL/L (3.5-5.1); SODIUM 141 MMOL/L (136-145)
[2020-08-24] MEDS ORDERED: FAMOTIDINE20 MG ORAL (06:13)
[2020-08-24] MEDS ORDERED: ZOFRAN ODT8 MG ORAL (06:13)
[2020-08-24 06:16] LABS: ALANINE AMINOTRANSFERASE 20 U/L (12-78); ALBUMIN 3.9 G/DL (3.4-5.0); ALBUMIN/GLOBULIN RATIO 1.1 (1.0-2.7); ALKALINE PHOSPHATASE 65 U/L (46-116); ASPARTATE AMINO TRANSFERASE 14 U/L (15-37); BILIRUBIN,TOTAL 0.4 MG/DL (0.2-1.0)
--- NOTE | 2020-08-24 07:03 | NUR ---
HAND-OFF: Report given to BROOKE Caballero and endorsed plan.
[2020-08-24 07:19] VITALS: BP 145/89
--- NOTE | 2020-08-25 15:55 | Cardiology Report ---
APPROVED REPORT EKG Measurement Heart [id number] <Conclusion> Sinus bradycardia Otherwise normal ECG
== END 2020-08-24 07:19 | disposition home or self-care (01) ==
LOC: EMR 05:42
DX: R11.10 Vomiting, unspecified (principal)
CPT/HCPCS: 36415; 71045; 80053; 83690; 85025; 93005; 96361; 96374; J2405; J7030; Z7502; 99284